=== PATIENT | female | born 1960 | race Caucasian/White ===

== ENCOUNTER 2017-09-08 12:39 | Outpatient (CLI) | payer BC | END 2017-09-08 12:40 | disposition home or self-care (01) | LOC: BICRAD 12:39 | PROVIDERS: ATTEND Internal Medicine Rheumatology | DX: M34.9 Systemic sclerosis, unspecified (principal) | CPT/HCPCS: 71046 ==

== ENCOUNTER 2019-06-05 10:25 | Outpatient (CLI) | payer BC ==
--- NOTE | 2019-06-05 10:48 | BD ---
EXAM: DEXA bone density examination HISTORY: 59-year-old postmenopausal female for screening COMPARISON: None FINDINGS: L1--bone mineral density 1.029 g/sq cm; T score 0.4 L2--bone mineral density 0.975 g/sq cm; T score -0.5 L3--bone mineral density 1.049 g/sq cm; T score -0.3 L4--bone mineral density 1.293 g/sq cm; T score 2.1 Total L1-L4--bone mineral density 1.098 g/sq cm; T score 0.5 Left femoral neck--bone mineral density0.810; T score -0.4 Total proximal left femur--bone mineral density 1.048; T score 0.9 IMPRESSION: Normal bone density. This patient has a 10 year WHO fracture risk of a major osteoporotic fracture of 13% and of a hip fracture of 0.6%.
--- NOTE | 2019-06-05 11:04 | RAD ---
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 COMPARISON: None FINDINGS: On the AP projection, multilevel facet arthropathy. Right neck soft tissue calcification ma y represent atherosclerosis At the open-mouth projection, lateral masses of C1 and C2 articulate appropriately. Intact odontoid p rocess Bilateral oblique views demonstrate moderate right and moderate to severe left neural foramen narrowi ng at C5-C6. There is no prevertebral soft tissue swelling. Predental space is normal. Cervical spine is adequatel y assessed from C1 through C7-T1 disc space on the lateral projection. Moderate degenerative disc disease at C5-C6 and C6-C7. Spondylolisthesis: C4-C5: Neutral 2.8 mm of anterolisthesis; flexion 4 mm of anterolisthesis; extension 3.1 mm of bo listhesis. IMPRESSION: Degenerative changes of the cervical spine as above.
== END 2019-06-05 10:26 | disposition home or self-care (01) ==
LOC: BICMAMMO 10:25
PROVIDERS: ATTEND Internal Medicine Rheumatology
DX: M81.0 Age-related osteoporosis without current pathological fracture (principal); M47.812 Spondylosis without myelopathy or radiculopathy, cervical region
CPT/HCPCS: 72052; 77080

== ENCOUNTER 2023-08-29 11:53 | Inpatient (IN) | payer MEDICARE ==
[2023-09-01 12:32] VITALS: BP 94/62; TEMP 97.5
== END 2023-09-01 12:51 | disposition home or self-care (01) | DRG 660 ==
LOC: ERS 11:53 → MSONC 14:02
PROVIDERS: ADMIT Urology; ATTEND Internal Medicine
PROC: 0T778DZ Dilation of Left Ureter with Intraluminal Device, Via Natural or Artificial Opening Endoscopic (ICD-10-PCS; principal; 2023-08-29)
PROC: BT1FZZZ Fluoroscopy of Left Kidney, Ureter and Bladder (ICD-10-PCS; 2023-08-29)
DX: N13.6 Pyonephrosis (principal); M33.10 Other dermatomyositis, organ involvement unspecified; Z16.23 Resistance to quinolones and fluoroquinolones; Z16.11 Resistance to penicillins; N81.10 Cystocele, unspecified; Z88.5 Allergy status to narcotic agent; Z90.710 Acquired absence of both cervix and uterus; Z79.899 Other long term (current) drug therapy; Z86.73 Personal history of transient ischemic attack (TIA), and cerebral infarction without residual deficits; B96.20 Unspecified Escherichia coli [E. coli] as the cause of diseases classified elsewhere
CPT/HCPCS: 36415; 71045; 74176; 74420; 80048; 80053; 80076; 80202; 81001; 82805; 83036; 83605; 83690; 83735; 83880; 84443; 84484; 85025; 86850; 86900; 86901; 87040; 87077; 87086; 87186; 93005; 96374; 96375; C2617; J0696; J1100; J1885; J2001; J2405; J2704; J3370; J3370-JW; J3490; Q9967

== ENCOUNTER 2023-09-14 09:59 | Day surgery (SDC) | payer MEDICARE ==
[2023-09-08 14:51] VITALS: BMI 28.3
[2023-09-14] MEDS ORDERED: Iopamidol 30 ML ONE (11:41)
[2023-09-14] MEDS ORDERED: fentaNYL PF 100 MCG/2 ML SYRINGE ONE (11:44)
[2023-09-14] MEDS ORDERED: Sodium Chloride 0.9% 100 ML ONE (11:44)
[2023-09-14] MEDS ORDERED: cefTRIAXone (ROCEPHIN) 2 GM VIAL ONE (11:44)
[2023-09-14] MEDS ORDERED: PROPOFOL 20 ML ONE (11:45)
[2023-09-14] MEDS ORDERED: Lidocaine 1% PF 5 ML VIAL ONE (11:45)
[2023-09-14] MEDS ORDERED: Rocuronium Bromide 10 MG/ML (10ML VIAL) ONE (11:45)
[2023-09-14] MEDS ORDERED: Ondansetron PF 4 MG/2 ML Vial ONE (12:07)
[2023-09-14] MEDS ORDERED: Dexamethasone 20 MG/5 ML VIAL ONE (12:07)
[2023-09-14] MEDS ORDERED: ePHEDrine Sulfate 50 MG/10 ML VIAL ONE (12:09)
[2023-09-14] MEDS ORDERED: SUGAMMADEX SODIUM 200 MG/2 ML VIAL ONE (13:06)
[2023-09-14] MEDS ORDERED: traMADol HCl 50 MG TAB ONE (15:26)
== END 2023-09-14 15:39 | disposition home or self-care (01) ==
LOC: SDC 09:59
PROVIDERS: ATTEND Urology
PROC: 0TF78ZZ Fragmentation in Left Ureter, Via Natural or Artificial Opening Endoscopic (ICD-10-PCS; principal; 2023-09-14)
PROC: 0T778DZ Dilation of Left Ureter with Intraluminal Device, Via Natural or Artificial Opening Endoscopic (ICD-10-PCS; 2023-09-14)
DX: N20.0 Calculus of kidney (principal); Z88.5 Allergy status to narcotic agent; Z88.8 Allergy status to other drugs, medicaments and biological substances; Z97.10 Presence of artificial limb (complete) (partial), unspecified; Z98.890 Other specified postprocedural states
CPT/HCPCS: 52356; 74420; 82365; C1747; C1769; 88300; J0696; J1100; J2405; J2704; J3490; Q9967